=== PATIENT | female | born 1995 | race Caucasian/White ===

== ENCOUNTER 2021-01-29 11:37 | Day surgery (SDC) | payer MEDICARE, MEDICAID ==
[2021-01-26 16:18] LABS: BASOPHILS # (AUTO) 0.1 X10'3 (0-0.2); BASOPHILS % (AUTO) 0.7 % (0-1); EOSINOPHILS # (AUTO) 0.1 X10'3 (0-0.9); EOSINOPHILS % (AUTO) 0.8 % (0-6); LYMPHOCYTES # (AUTO) 2.3 X10'3 (1.1-4.8); LYMPHOCYTES % (AUTO) 22.4 % (21-51); MEAN CORPUSCULAR HEMOGLOBIN 27.9 PG (27.0-31.0); MEAN CORPUSCULAR HGB CONC 34.3 g/dL (33.0-36.5); MEAN CORPUSCULAR VOLUME 81.3 FL (78-98); MEAN PLATELET VOLUME 8.2 FL (7.4-10.4); MONOCYTES # (AUTO) 0.9 X10'3 (0-0.9); MONOCYTES % (AUTO) 8.8 % (2-12); NEUTROPHILS # (AUTO) 6.8 X10'3 (1.8-7.7); NEUTROPHILS % (AUTO) 67.3 % (42-75); PRE OP PLATELET COUNT 356 X10'3 (140-440); RED CELL DISTRIBUTION WIDTH 15.8 % (11.5-14.5)
[2021-01-26 16:31] LABS: ALBUMIN 3.7 G/DL (3.4-5.0); ALKALINE PHOSPHATASE 60 IU/L (46-116); BLOOD UREA NITROGEN 15 MG/DL (7-18); BUN/CREATININE RATIO 19.2 (6.6-38.0); CALCIUM 8.5 MG/DL (8.5-10.1); CHLORIDE 108 MMOL/L (99-107); CREATININE 0.78 MG/DL (0.40-0.90); PRE OP ALT 28 U/L (30-65); PRE OP ANION GAP 9 (8-16); PRE OP AST 14 U/L (10-37); PRE OP BILIRUB, TOTAL 0.2 MG/DL (0.0-1.0); PRE OP GLUCOSE 92 MG/DL (70-104); PRE OP POTASSIUM 3.6 MMOL/L (3.4-5.1); PRE OP SODIUM 145 MMOL/L (135-145); TOTAL CARBON DIOXIDE 28.4 MMOL/L (24-32); TOTAL PROTEIN 7.4 G/DL (6.4-8.2); eGFR 89 ML/MIN
[2021-01-26 16:39] LABS: HCG SERUM QL NEGATIVE
[~2021-01-29] VITALS: Ht 167.6 cm; Wt 94.4 kg
[~2021-01-29 11:37] MED LIST: CLINDAMYCIN/D5W 900mg/50ml 50 ML IV ONE; DOX PO; ERGO400C PO; NAPR-56 PO; PANT-47 PO; PARO30TA4 PO; famotidine 20mg tablet PO ONE; ringers solution, lacted 1,000 ML IV SCH
[2021-01-29 12:00] VITALS: BP 105/61
[2021-01-29] MEDS ORDERED: BUPIVAcaine/PF 2.5 mg/ml (0.25%) 30ml vial ONE (13:55)
[2021-01-29] MEDS ORDERED: LIDOcaine 1% 30ml preserv. free vial ONE (13:55)
[2021-01-29] MEDS ORDERED: sevoflurane 250ml liquid IH ONE (14:52)
[2021-01-29] MEDS ORDERED: fentaNYL/PF 50MCG/1 ML 2ML syringe ONE (14:54)
[2021-01-29] MEDS ORDERED: midazolam 1 mg/ML 2ml injection ONE (14:56)
[2021-01-29] MEDS ORDERED: LIDOcaine 2% (20mg/ml) 5ml vial ONE (15:10)
[2021-01-29] MEDS ORDERED: dexamethasone sod phosphate 4mg/ml inj. ONE (15:10)
[2021-01-29] MEDS ORDERED: ondansetron/PF 4mg/2ml inj ONE (15:10)
[2021-01-29] MEDS ORDERED: propofol inj 20 ML IV ONE (15:10)
[2021-01-29 15:30] VITALS: BP 100/61
[2021-01-29] MEDS ORDERED: HYDROcodone/acetaminophen 5mg/325mg tablet PO PRN (15:30)
--- NOTE | 2021-01-29 15:30 | NUR ---
Received from OR via [facility], accompanied by Anesthesiologist DR. S[place] and report given by Anesthesiologist. PATIENT WAKING UP, NO S/S OF PAIN, V/S WNL, SCD ON, 20G TO RUE, LEFT UPPER ARM-DERMABOND IN PLACE-CDI
[2021-01-29 15:40] VITALS: BP 101/62
[2021-01-29 15:50] VITALS: BP 109/62
[2021-01-29 16:00] VITALS: BP 107/62
[2021-01-29 16:10] VITALS: BP 113/65
--- NOTE | 2021-01-29 16:10 | NUR ---
PATIENT A&OX4, DENIES PAIN, V/S WNL, SCD OFF, 20G TO RUE D/C, DERMABOND TO LEFT UPPER ARM, D/C INSTRUCTIONS GIVEN TO PATIENT AND MOM-ALL QUESTIONS ANSWERED, d/c home with all belongings and family gave transport home.
== END 2021-01-29 16:10 | disposition home or self-care (01) ==
LOC: PAS 11:37
PROVIDERS: ATTEND Surgery
DX: Z30.46 Encounter for surveillance of implantable subdermal contraceptive (principal); F90.9 Attention-deficit hyperactivity disorder, unspecified type; F84.0 Autistic disorder; K21.9 Gastro-esophageal reflux disease without esophagitis; E66.9 Obesity, unspecified; Z68.36 Body mass index [BMI] 36.0-36.9, adult; Z79.899 Other long term (current) drug therapy; Z88.0 Allergy status to penicillin; Z98.890 Other specified postprocedural states; Z20.822 Contact with and (suspected) exposure to COVID-19
CPT/HCPCS: 11982; 36415; 80053; 82948; 84703; 85025; 87635; C9803; J1100; J2001; J2250; J2405; J2704; J3010; J3490; Z7506; Z7512; A4215; A4618; A7000; J7120

== ENCOUNTER 2021-02-24 01:28 | Emergency (ER) | payer MEDICARE, MEDICAID ==
[~2021-02-24] VITALS: Ht 167.6 cm; Wt 94.0 kg
[~2021-02-24 01:28] MED LIST changes: -CLINDAMYCIN/D5W 900mg/50ml 50 ML IV ONE; -famotidine 20mg tablet PO ONE; -ringers solution, lacted 1,000 ML IV SCH
[2021-02-24] MEDS ORDERED: acetaminophen 325mg tablet PO ONE (02:55)
[2021-02-24 03:13] LABS: COLOR,URINE YELLOW (Yellow); UA COLLECTION TYPE URINAL
[2021-02-24 03:14] LABS: CLARITY,URINE SLIGHTLY CLOUDY (Clear); GLUCOSE, URINE NEGATIVE (Neg); KETONES,URINE TRACE mg/dl (Neg); LEUKOCYTE ESTERASE ,URINE NEGATIVE (Neg); NITRITES, URINE NEGATIVE (Neg); OCCULT BLOOD,URINE NEGATIVE (Neg); PROTEIN,URINE NEGATIVE (Neg); UROBILINOGEN,URINE 0.2 E.U/dL (0.2-1.0)
[2021-02-24 03:15] LABS: BASOPHILS # (AUTO) 0.1 X10'3 (0-0.2); BASOPHILS % (AUTO) 1.4 % (0-1); EOSINOPHILS % (AUTO) 0.7 % (0-6); HEMATOCRIT 38.9 % (35.0-45.0); HEMOGLOBIN 12.9 g/dl (12.0-16.0); LYMPHOCYTES # (AUTO) 1.5 X10'3 (1.1-4.8); LYMPHOCYTES % (AUTO) 19.9 % (21-51); MEAN CORPUSCULAR HEMOGLOBIN 27.2 PG (27.0-31.0); MEAN CORPUSCULAR HGB CONC 33.1 g/dL (33.0-36.5); MEAN CORPUSCULAR VOLUME 82.2 FL (78-98); MEAN PLATELET VOLUME 8.2 FL (7.4-10.4); MONOCYTES # (AUTO) 0.9 X10'3 (0-0.9); MONOCYTES % (AUTO) 12.2 % (2-12); NEUTROPHILS # (AUTO) 4.8 X10'3 (1.8-7.7); NEUTROPHILS % (AUTO) 65.8 % (42-75); PLATELET COUNT 352 X10'3 (140-440); RED BLOOD COUNT 4.74 X10'6 (4.20-5.60); RED CELL DISTRIBUTION WIDTH 15.8 % (11.5-14.5); WHITE BLOOD COUNT 7.3 X10'3 (4.5-11.0)
[2021-02-24 03:16] LABS: WBC,URINE 0-4 /HPF (0-4)
[2021-02-24 03:17] LABS: BACTERIA,URINE 1+ /HPF (Neg); MUCUS STRANDS MODERATE /LPF (Neg); RBC,URINE 0-2 /HPF (0-2); SQUAMOUS EPITHELIAL CELL,UR MANY /LPF (FEW)
[2021-02-24 03:20] LABS: URINE AMPHETAMINE SCREEN NEGATIVE (Neg); URINE BARBITUATE SCREEN NEGATIVE (Neg); URINE BENZODIAZEPINES SCREEN NEGATIVE (Neg); URINE CANNABINOID SCREEN NEGATIVE (Neg); URINE COCAINE SCREEN NEGATIVE (Neg); URINE METHADONE SCREEN NEGATIVE (Neg); URINE OPIATE SCREEN NEGATIVE (Neg); URINE PHENCYCLIDINE SCREEN NEGATIVE (Neg)
[2021-02-24 03:32] LABS: ALANINE AMINOTRANSFERASE 170 U/L (12-78); ALBUMIN 3.5 G/DL (3.4-5.0); ALKALINE PHOSPHATASE 50 IU/L (46-116); ANION GAP 13 (8-16); ASPARTATE AMINO TRANSFERASE 59 U/L (10-37); BILIRUBIN,TOTAL 0.2 MG/DL (0.1-1.0); BLOOD UREA NITROGEN 10 MG/DL (7-18); BUN/CREATININE RATIO 13.3 (6.6-38.0); CALCIUM 8.3 MG/DL (8.5-10.1); CHLORIDE 109 MMOL/L (99-107); CREATININE 0.75 MG/DL (0.40-0.90); GLUCOSE 106 MG/DL (70-104); POTASSIUM 3.5 MMOL/L (3.5-5.1); SODIUM 146 MMOL/L (135-145); TOTAL CARBON DIOXIDE 24.2 MMOL/L (24-32); eGFR > 90 ML/MIN
[2021-02-24 03:34] LABS: BETA HCG,QUANTITATIVE < 1.0 mIU/ml
[2021-02-24 04:09] VITALS: BP 128/57
== END 2021-02-24 04:14 | disposition home or self-care (01) ==
LOC: ER 01:29
DX: U07.1 COVID-19 (principal); Z88.0 Allergy status to penicillin; Z79.899 Other long term (current) drug therapy
CPT/HCPCS: 36415; 71045; 80053; 80305; 81001; 84145; 84702; 85025; 87635; 99284; C9803

== ENCOUNTER 2021-03-03 22:47 | Emergency (ER) | payer MEDICARE, MEDICAID ==
[~2021-03-03] VITALS: Ht 167.6 cm; Wt 160.0 kg
[2021-03-03] MEDS ORDERED: ALBU8HFA PO (23:05)
[2021-03-03 23:15] VITALS: BP 131/92
== END 2021-03-04 00:24 | disposition home or self-care (01) ==
LOC: ER 22:49
DX: U07.1 COVID-19 (principal); R09.89 Other specified symptoms and signs involving the circulatory and respiratory systems; R05.9 Cough, unspecified; Z88.0 Allergy status to penicillin; Z79.899 Other long term (current) drug therapy
CPT/HCPCS: 99283

== ENCOUNTER 2021-03-10 18:27 | Emergency (ER) | payer MEDICARE, MEDICAID ==
[~2021-03-10] VITALS: Ht 167.6 cm; Wt 79.5 kg
[~2021-03-10 18:27] MED LIST changes: +ALBU8HFA PO
[2021-03-10] MEDS ORDERED: IBUP-1984 PO (18:57)
--- NOTE | 2021-03-10 19:10 | NUR ---
PATIENT COMPLAINS OF PAIN LEFT ANKLE. STATES SHE STUMBLED AND FELL THIS MORNING. NO DISTRESS. PATIENT STATES SHE TESTED POSITIVE FOR COVID 19 7 DAYS AGO. PATIENT SEEN BY PROVIDER IN TRIAGE AND DISCHARGED.
[2021-03-10 19:11] VITALS: BP 128/71
== END 2021-03-10 19:14 | disposition home or self-care (01) ==
LOC: ER 18:27
DX: S93.401A Sprain of unspecified ligament of right ankle, initial encounter (principal); M25.571 Pain in right ankle and joints of right foot; Z88.0 Allergy status to penicillin; Z79.899 Other long term (current) drug therapy; W22.8XXA Striking against or struck by other objects, initial encounter; Y93.89 Activity, other specified; Y92.89 Other specified places as the place of occurrence of the external cause; Y99.8 Other external cause status
CPT/HCPCS: 99282

== ENCOUNTER 2021-03-16 05:28 | Emergency (ER) | payer MEDICARE, MEDICAID ==
[~2021-03-16] VITALS: Ht 167.6 cm; Wt 100.0 kg
[~2021-03-16 05:28] MED LIST changes: +IBUP-1984 PO
[2021-03-16 05:38] VITALS: BP 147/68
[2021-03-16] MEDS ORDERED: ALBU8HFA PO (05:54)
[2021-03-16] MEDS ORDERED: NAPR-996 PO (05:54)
== END 2021-03-16 06:30 | disposition home or self-care (01) ==
LOC: ER 05:29
DX: M25.532 Pain in left wrist (principal); Z79.899 Other long term (current) drug therapy; Z88.0 Allergy status to penicillin
CPT/HCPCS: 99282; 99283

== ENCOUNTER 2021-04-03 23:08 | Emergency (ER) | payer MEDICARE, MEDICAID ==
[~2021-04-03] VITALS: Ht 167.6 cm; Wt 81.8 kg
[~2021-04-03 23:08] MED LIST changes: -IBUP-1984 PO; +NAPR-996 PO
[2021-04-04 01:08] LABS: URINE HCG POSITIVE (NEG)
[2021-04-04 03:17] VITALS: BP 110/78
== END 2021-04-04 03:18 | disposition home or self-care (01) ==
LOC: ER 23:09
DX: O30.002 Twin pregnancy, unspecified number of placenta and unspecified number of amniotic sacs, second trimester (principal); Z3A.24 24 weeks gestation of pregnancy; Z59.00 Homelessness unspecified; Z88.0 Allergy status to penicillin; Z79.899 Other long term (current) drug therapy
CPT/HCPCS: 81025; 99283

== ENCOUNTER 2021-04-05 00:27 | Emergency (ER) | payer MEDICARE, MEDICAID ==
[~2021-04-05] VITALS: Ht 165.1 cm; Wt 91.5 kg
[2021-04-05 00:42] VITALS: BP 116/43
[2021-04-05] MEDS ORDERED: acetaminophen 325mg tablet PO ONE (01:40)
== END 2021-04-05 02:20 | disposition home or self-care (01) ==
LOC: ER 00:27
DX: M25.551 Pain in right hip (principal); R10.9 Unspecified abdominal pain; Z88.0 Allergy status to penicillin; Z79.899 Other long term (current) drug therapy; Z59.00 Homelessness unspecified
CPT/HCPCS: 99283

== ENCOUNTER 2021-04-17 02:14 | Emergency (ER) | payer MEDICARE, MEDICAID ==
[~2021-04-17] VITALS: Ht 167.6 cm; Wt 78.0 kg
[~2021-04-17 02:14] MED LIST changes: -ALBU8HFA PO
[2021-04-17 02:33] VITALS: BP 117/63
[2021-04-17] MEDS ORDERED: ALBU18HF2 INH (09:33)
== END 2021-04-17 10:13 | disposition home or self-care (01) ==
LOC: ER 02:15
DX: S93.401A Sprain of unspecified ligament of right ankle, initial encounter (principal); O26.92 Pregnancy related conditions, unspecified, second trimester; R11.10 Vomiting, unspecified; Z3A.20 20 weeks gestation of pregnancy; Z76.0 Encounter for issue of repeat prescription; Z88.0 Allergy status to penicillin; Z79.899 Other long term (current) drug therapy; X58.XXXA Exposure to other specified factors, initial encounter; Y93.89 Activity, other specified; Y92.89 Other specified places as the place of occurrence of the external cause; Y99.8 Other external cause status
CPT/HCPCS: 99283

== ENCOUNTER 2021-04-25 18:03 | Emergency (ER) | payer MEDICARE, MEDICAID ==
[~2021-04-25] VITALS: Ht 167.6 cm; Wt 74.8 kg
[~2021-04-25 18:03] MED LIST changes: +ALBU18HF2 INH
[2021-04-25 18:32] VITALS: BP 112/67
== END 2021-04-25 22:12 | disposition home or self-care (01) ==
LOC: ER 18:05
DX: M25.571 Pain in right ankle and joints of right foot (principal); Z59.00 Homelessness unspecified; Z88.0 Allergy status to penicillin; Z79.899 Other long term (current) drug therapy
CPT/HCPCS: 99283

== ENCOUNTER 2021-06-05 15:30 | Emergency (ER) | payer MEDICARE, MEDICAID ==
[~2021-06-05] VITALS: Ht 170.2 cm; Wt 81.0 kg
[2021-06-05 16:27] VITALS: BP 114/69
== END 2021-06-05 21:58 | disposition home or self-care (01) ==
LOC: ER 15:30
DX: S90.451A Superficial foreign body, right great toe, initial encounter (principal); M79.671 Pain in right foot; Z59.00 Homelessness unspecified; Z88.0 Allergy status to penicillin; Z79.899 Other long term (current) drug therapy; X58.XXXA Exposure to other specified factors, initial encounter; Y93.89 Activity, other specified; Y92.89 Other specified places as the place of occurrence of the external cause; Y99.8 Other external cause status
CPT/HCPCS: 73620; 99283

== ENCOUNTER 2021-06-06 15:35 | Emergency (ER) | payer MEDICARE, MEDICAID ==
[~2021-06-06] VITALS: Ht 167.6 cm; Wt 81.0 kg
[2021-06-06 15:35] VITALS: BP 104/67
--- NOTE | 2021-06-06 15:35 | NUR ---
pt's eyes irrigated with three flushes, face washed with cloth. pt reports no discomfort of eyes or face
--- NOTE | 2021-06-06 16:05 | NUR ---
pt seen walking out of ed speaking on telephone. unable to provide d/c paperwork to pt prior to her walking out. aware.
== END 2021-06-06 16:08 | disposition home or self-care (01) ==
LOC: ER 15:35
DX: O26.899 Other specified pregnancy related conditions, unspecified trimester (principal); Z3A.00 Weeks of gestation of pregnancy not specified; Z88.0 Allergy status to penicillin; Z59.00 Homelessness unspecified; Z79.899 Other long term (current) drug therapy
CPT/HCPCS: 99283